=== PATIENT | male | born 1960 | race Two or more races ===

== ENCOUNTER → 2022-01-18 | Outpatient (CLI) | payer OTHER ==
--- NOTE | 2022-01-19 07:46 | KCIC ---
EXAM: CT coronary artery calcium screening; radiologist over read. HISTORY: Cardiovascular screening. Heart disease. TECHNIQUE: Computed tomographic images of the chest were obtained without contrast. Multiplanar refor matting was performed. *One or more of the following individualized dose reduction techniques were utilized for this examina tion: 1. Automated exposure control. 2. Adjustment of the mA and/or kV according to patient size. 3. Use of iterative reconstruction technique. COMPARISON: None. FINDINGS: The heart is normal in size. There is coronary artery calcification. There is no lymphadeno zac. The visualized aorta is normal in caliber. There is no infiltrate, pleural effusion or pneumot horax. There is no suspicious pulmonary nodule. There is no acute abdominal or osseous finding. IMPRESSION: 1. Coronary artery calcification. Please refer to the separate coronary artery calcium score report. 2. No significant incidental thoracic finding Electronically signed by: Saadia Fay MD (01/18/2022 11:50 AM) [facility]
== END ==
LOC: KCIC CT 10:44
PROVIDERS: ATTEND Family Medicine
DX: Z13.6 Encounter for screening for cardiovascular disorders (principal); I25.10 Atherosclerotic heart disease of native coronary artery without angina pectoris; Z82.49 Family history of ischemic heart disease and other diseases of the circulatory system
CPT/HCPCS: 75571